=== PATIENT | male | born 1985 | race Caucasian/White ===

== ENCOUNTER 2016-08-25 08:58 | Emergency (ER) ==
[2016-08-25 09:06] VITALS: BP 135/81; TEMP 98.6; BMI 36.5
[2016-08-25] MEDS ORDERED: ROCEPHIN IM STA (09:11)
[2016-08-25] MEDS ORDERED: LIDOCAINE 1 % AMP 5 ML (SUTURES) IM STA (09:11)
--- NOTE | 2016-08-25 09:13 | ED.PDOC ---
General ED Provider: Dr. ÁNGELA ESPINOZA Chief Complaint: Earache Stated Complaint: Left ear pain, drainage,. was swimming last wk Time Seen by Physician: 09:11 Mode of Arrival: Walk-In Information Source: Patient Primary Care Provider: ELVIS MARX Nursing and Triage Documentation Reviewed and Agree: Yes EENT Complaint Exam - Ear Complaint/Exam Symptoms Are: Still present Timing: Constant Initial Severity: Moderate Current Severity: Severe Character: Reports: Dull pain Aggravating: Reports: None Alleviating: Reports: None Associated Signs and Symptoms: Reports: Ear swelling, Discharge, Hearing loss. Denies: Ear trauma, Fever, Bleeding, Sore throat, Headache, URI symptoms, Foreign body sensation, Rash, Pain to external ear, Pain to external face Related History: Reports: Similar Episode Ear Surgical History: None Vesicles to External Pinna: No Vesicles to Tragus: No TMJ Tenderness: None Mastoid Tenderness: None Tragal Tenderness: Left External Canal: Edema, Erythema Material in Canal: Present: Discharge Differential Diagnoses: Otitis Externa Review of Systems - Review Of Systems Constitutional: Reports: No symptoms Eyes: Reports: No symptoms Ears, Nose, Mouth, Throat: Reports: Ear pain, Ear discharge Respiratory: Reports: No symptoms Cardiac: Reports: No symptoms GI: Reports: No symptoms : Reports: No symptoms Musculoskeletal: Reports: No symptoms Skin: Reports: No symptoms Neurological: Reports: No symptoms Endocrine: Reports: No symptoms Hematologic/Lymphatic: Reports: No symptoms All Other Systems: Reviewed and Negative Past Medical History - Past Medical History Previously Healthy: Yes Endocrine: Reports: None Cardiovascular: Reports: None Respiratory: Reports: None Hematological: Reports: None Gastrointestinal: Reports: None Genitourinary: Reports: None Neuro/Psych: Reports: None Musculoskeletal: Reports: None Cancer: Reports: None - Surgical History General Surgical History: Reports: None - Family History Family History: Reports: None - Social History Smoking Status: Current every day smoker Smoking Cessation Counseling Time: > 3 min - 10 min Hx Substance Use: No Alcohol Screening: None - Immunizations Tetanus Shot up to Date: Yes Physical Exam - Physical Exam Appearance: Well-appearing, No pain distress, Well-nourished Eyes: YOSEF, EOMI, Conjunctiva clear ENT: Ears normal (can red, swollen, tender.), Erythema Respiratory: Airway patent, Breath sounds clear, Breath sounds equal, Respirations nonlabored Cardiovascular: RRR, Pulses normal, No rub, No murmur GI/: Soft, Nontender, No masses, Bowel sounds normal, No Organomegaly Musculoskeletal: Normal strength, ROM intact, No edema, No calf tenderness Skin: Warm, Dry, Normal color Neurological: Sensation intact, Motor intact, Reflexes intact, Cranial nerves intact, Alert, Oriented Psychiatric: Affect appropriate, Mood appropriate Critical Care Note - Critical Care Note Total Time (mins): 0 Course - Course Orders, Labs, Meds: Orders Category Date Time Status Ceftriaxone Sodium [Rocephin] MEDS 08/25/16 09:11 Stat 1 gm IM ONCE STA Lidocaine HCl/Pf [Lidocaine 1 % Amp 5 ml (Sutures)] MEDS 08/25/16 09:11 Stat 2.1 ml IM ONCE STA Vital Signs: Temp Pulse Resp BP Pulse Ox 08/25/16 08:59 98.6 F 96 H 16 135/81 95 Departure - Departure Time of Disposition: 09:16 Disposition: HOME SELF-CARE Discharge Problem: Otitis externa Qualifiers: Otitis externa type: diffuse Chronicity: acute Laterality: left Qualifier Code : (H60.312) Diffuse otitis externa, left ear Instructions: Otitis Externa (ED) Condition: Stable Pt referred to PMD for follow-up: Yes Additional Instructions: Tylenol prn antibiotic side effects discussed if not better f/u PMD in 3-4 days Prescriptions: Ciprofloxacin HCl [Cipro] 250 mg PO Q12HR #14 tablet Ciprofloxacin [Otiprio] 1 ml OT TID #1 vial Allergies/Adverse Reactions: Allergies No Known Allergies Allergy (Verified 08/25/16 09:05) Home Medications: Ambulatory Orders Ciprofloxacin HCl [Cipro] 250 mg PO Q12HR #14 tablet 08/25/16 Ciprofloxacin [Otiprio] 1 ml OT TID #1 vial 08/25/16 Disposition Discussed With: Patient
== END 2016-08-25 09:42 | disposition home or self-care (01) ==
LOC: ED 08:58
DX: H60.312 Diffuse otitis externa, left ear (principal); F17.210 Nicotine dependence, cigarettes, uncomplicated
CPT/HCPCS: 96372; 99283

== ENCOUNTER 2016-09-14 14:21 | Emergency (ER) ==
[2016-09-14 14:30] VITALS: BP 103/64; TEMP 98.1; BMI 36.5
[2016-09-14] MEDS ORDERED: LIDOCAINE 1 % AMP 5 ML (SUTURES) SQ STA (14:30)
--- NOTE | 2016-09-14 14:32 | ED.PDOC ---
General ED Provider: Dr. VISHAL CASTELLON Chief Complaint: Laceration Stated Complaint: Patient is a 30 year old male who comes to the Er with a 4 cm gaping lac to left forearm with bleeding but controlled with Pressure. He states that he was working on a metal roof when it got cut on piece of metal roof. Time Seen by Physician: 14:30 Mode of Arrival: Walk-In Information Source: Patient Exam Limitations: No limitations Primary Care Provider: ELVIS MARX Nursing and Triage Documentation Reviewed and Agree: Yes Skin Complaint Exam - Laceration/Upper Ext. Complaint/Exam Location of Injury: Left, Arm Mechanism of Injury: Laceration Onset/Duration: 20 min Symptoms Are: Still present Initial Severity: Severe Current Severity: Moderate Aggravating: Movement Alleviating: Compression Associated Signs and Symptoms: Denies: Fever, Chills, Erythema, Numbness, Tingling Upper Extremity/Torso Picture: 1 - Laceration Differential Diagnoses: Laceration Review of Systems - Review Of Systems Constitutional: Reports: No symptoms Eyes: Reports: No symptoms Ears, Nose, Mouth, Throat: Reports: No symptoms Respiratory: Reports: No symptoms Cardiac: Reports: No symptoms GI: Reports: No symptoms : Reports: No symptoms Musculoskeletal: Reports: No symptoms Skin: Reports: Other (laceration on the left arm ) Neurological: Reports: No symptoms Endocrine: Reports: No symptoms Hematologic/Lymphatic: Reports: No symptoms All Other Systems: Reviewed and Negative Past Medical History - Past Medical History Previously Healthy: Yes Endocrine: Reports: None Cardiovascular: Reports: None Respiratory: Reports: None Hematological: Reports: None Gastrointestinal: Reports: None Genitourinary: Reports: None Neuro/Psych: Reports: None Musculoskeletal: Reports: None Cancer: Reports: None - Surgical History General Surgical History: Reports: None - Family History Family History: Reports: None - Social History Smoking Status: Current every day smoker, Heavy tobacco smoker Hx Substance Use: No Alcohol Screening: None - Immunizations Tetanus Shot up to Date: (2009) Physical Exam - Physical Exam Appearance: Ill-appearing Ill-appearing: Mild Pain Distress: Moderate Neck: Supple Respiratory: Airway patent Cardiovascular: RRR, Pulses normal, No rub, No murmur Musculoskeletal: Normal strength, ROM intact, No edema, No calf tenderness Skin: Warm, Dry, Normal color Psychiatric: Anxious Procedures - Laceration/Wound Repair Left arm Wound Description: Linear Wound Length (cm): 4.5 Wound Width: 1.5 Wound Depth: 1 Wound Explored: Clean Wound Irrigated: No Wound Prep: Betadine, Scrub Anesthesia: Lidocaine Wound Repaired With: Sutures Suture Size and Type: Prolone 4.0 Number of Sutures: 12 (Running ) Progress: Tolerated procedure well Critical Care Note - Critical Care Note Total Time (mins): 0 Course - Course Orders, Labs, Meds: Orders Category Date Time Status Wound care [ED WOUND CARE] .ONCE EMERGENCY 09/14/16 14:30 Active Diphth,Pertuss(Acell),Tet Vac [Boostrix] MEDS 09/14/16 14:55 Discontinued 0.5 ml IM .ONCE ONE Lidocaine HCl/Pf [Lidocaine 1 % Amp 5 ml (Sutures)] MEDS 09/14/16 14:30 Discontinued 5 ml SQ ONCE STA Medications Discontinued Medications Generic Name Dose Route Start Last Admin Trade Name Familiaq PRN Reason Stop Dose Admin Diphtheria/Pertussis/Tetanus Vacc 0.5 ml 09/14/16 14:55 09/14/16 15:06 Boostrix IM 09/14/16 14:56 0.5 ml .ONCE ONE Administration Lidocaine HCl 5 ml 09/14/16 14:30 09/14/16 14:36 Lidocaine 1 % Amp 5 Ml (Sutures) SQ 09/14/16 14:31 5 ml ONCE STA Administration Vital Signs: Temp Pulse Resp BP Pulse Ox 09/14/16 14:24 98.1 F 79 20 103/64 95 Departure - Departure Time of Disposition: 15:20 Disposition: HOME SELF-CARE Discharge Problem: Laceration - injury, Arm laceration Instructions: Laceration (ED) Condition: Fair Pt referred to PMD for follow-up: Yes Additional Instructions: Follow up with PCP in 7-10 days Take motrin as needed for pain Report any signs of infection. Allergies/Adverse Reactions: Allergies No Known Allergies Allergy (Verified 09/14/16 14:30) Home Medications: Ambulatory Orders 1 [No Reported Medications] 09/14/16 Disposition Discussed With: Patient, Family
[2016-09-14] MEDS ORDERED: BOOSTRIX IM ONE (14:55)
== END 2016-09-14 15:20 | disposition home or self-care (01) ==
LOC: ED 14:21
DX: S51.812A Laceration without foreign body of left forearm, initial encounter (principal); F17.210 Nicotine dependence, cigarettes, uncomplicated; W26.8XXA Contact with other sharp object(s), not elsewhere classified, initial encounter
CPT/HCPCS: 90471; 99283